=== PATIENT | male | born 1960 | race Caucasian/White ===

== ENCOUNTER 2022-03-07 20:42 | Emergency (ER) | payer OTHER ==
[~2022-03-07] VITALS: Ht 157.5 cm; Wt 69.1 kg
[2022-03-07] MEDS ORDERED: LACTATED RINGER'S 1,000 ML IV ONE (21:15)
[2022-03-07] MEDS ORDERED: ASPirin 325 MG TAB PO ONE (21:15)
[2022-03-07 21:54] LABS: Basophils # (auto) 0.1 10 ^3/uL (0-0.2); Basophils % (auto) 0.8 % (0.0-2.0); Eosinophils # (auto) 0.5 10 ^3/uL (0-0.8); Eosinophils % (auto) 4.8 % (0.0-7.0); Hematocrit 46.2 % (41.0-53.0); Lymphocytes % (auto) 10.2 % (10.0-50.0); Mean Corpuscular Hemoglobin 28.9 pg (28.0-32.0); Mean Corpuscular Hgb Conc. 32.5 g/dL (32.0-36.0); Monocytes # (auto) 0.7 10 ^3/uL (0-1.3); Monocytes % (auto) 7.4 % (0.0-12.0); Neutrophils # (auto) 7.7 10 ^3/uL (1.6-8.6); Neutrophils % (auto) 76.8 % (37.0-80.0); Nucleated Red Blood Cells % 0.1 %; Red Blood Cells 5.19 10^6/uL (4.5-5.90); Red Cell Distribution Width 14.2 % (11.8-14.3)
[2022-03-07 22:08] LABS: INR 0.97 (0.9-1.15); Partial Thromboplastin Time 25.1 sec (24.6-33.4)
[2022-03-07 22:11] LABS: Alanine Aminotransferase 31 U/L (16-61); Albumin 4.1 g/dL (3.4-5.0); Anion Gap 5 (5-15); Aspartate Aminotransferase 25 U/L (15-37); BUN/Creatinine Ratio 19.5; Blood Alcohol < 3.0 mg/dL (0-5); Blood Urea Nitrogen 23 mg/dL (7-18); Calcium 9.2 mg/dL (8.5-10.1); Carbon Dioxide 31 mmol/L (21-32); Chloride 103 mmol/L (98-107); GFR African American 81 mL/min; GFR Non-African American 67 mL/min; Glucose 89 mg/dL (74-106); Magnesium 2.4 mg/dL (1.6-2.6); Sodium 139 mmol/L (136-145)
[2022-03-07 22:14] LABS: Alkaline Phosphatase 105 U/L (45-117); Bilirubin, Total 0.5 mg/dL (0.2-1.0); Total Protein 7.6 g/dL (6.4-8.2)
[2022-03-07 22:52] LABS: Urine Bacteria NONE SEEN /hpf (None Seen); Urine Blood Negative /uL (Negative); Urine WBC <1 /hpf (0 - 3)
[2022-03-07 22:54] LABS: Urine Specific Gravity > 1.050 (1.001-1.035)
[2022-03-07 23:06] LABS: Alcohol, Urine < 3.0 mg/dL (0-10); Amphetamine Screen, Urine NEGATIVE (NEGATIVE); Barbiturate Scree,Urine NEGATIVE (NEGATIVE); Cannabinoid Screen, Urine POSITIVE (NEGATIVE); Cocaine Screen, Urine NEGATIVE (NEGATIVE); Opiate Scree,Urine NEGATIVE (NEGATIVE); Phencyclidine Screen, Urine NEGATIVE (NEGATIVE)
[2022-03-07 23:14] LABS: Benzodiazephine Screen, Urine NEGATIVE (NEGATIVE)
[2022-03-07] MEDS ORDERED: hydrALAZINE HCL 20 MG/ML VL IV ONE (23:45)
[2022-03-08] MEDS ORDERED: LORazepam 2MG/ML-1ML VIAL IV ONE (00:15)
[2022-03-08 03:15] VITALS: BP 127/67
== END 2022-03-08 03:15 | disposition home or self-care (01) ==
LOC: ER 20:45
DX: R47.9 Unspecified speech disturbances (principal); R07.9 Chest pain, unspecified; R41.82 Altered mental status, unspecified; Z86.73 Personal history of transient ischemic attack (TIA), and cerebral infarction without residual deficits
CPT/HCPCS: 36415; 70450; 70496; 71045; 80053; 80307; 80320; 81001; 83735; 84484; 85025; 85610; 85730; 93005; 96361; 96374; 96375; 99285; J0360; J2060

== ENCOUNTER 2023-07-17 00:59 | Emergency (ER) | payer MEDICARE, OTHER ==
[~2023-07-17] VITALS: Ht 165.1 cm; Wt 77.1 kg
[2023-07-17 01:15] VITALS: BP 137/85; PULSE 116; RESP 22; O2SAT 100
[2023-07-17] MEDS: PROPOFOL 100 ML IV ONE (01:25)
[2023-07-17 01:28] LABS: Basophils # (auto) 0.1 10 ^3/uL (0-0.2); Basophils % (auto) 0.3 % (0.0-2.0); Eosinophils # (auto) 0 10 ^3/uL (0-0.8); Eosinophils % (auto) 0.2 % (0.0-7.0)
[2023-07-17 01:29] LABS: Hematocrit 52.9 % (41.0-53.0); Hemoglobin 17.5 g/dL (13.5-17.5); Lymphocytes % (auto) 5.2 % (10.0-50.0); Mean Corpuscular Hemoglobin 29.1 pg (28.0-32.0); Mean Corpuscular Hgb Conc. 33.1 g/dL (32.0-36.0); Monocytes # (auto) 1.9 10 ^3/uL (0-1.3); Monocytes % (auto) 9.5 % (0.0-12.0); Neutrophils # (auto) 16.9 10 ^3/uL (1.6-8.6); Neutrophils % (auto) 84.8 % (37.0-80.0); Nucleated Red Blood Cells % 0.2 %; Red Blood Cells 6.01 10^6/uL (4.5-5.90); White Blood Cell 19.9 10^3/uL (4.4-10.8)
[2023-07-17] MEDS ORDERED: PROPOFOL 100 ML IV SCH (01:30)
[2023-07-17 01:52] LABS: Alanine Aminotransferase 42 U/L (7-40); Albumin 4.9 g/dL (3.2-4.8); Alkaline Phosphatase 122 U/L (46-116); Anion Gap 6 (5-15); Aspartate Aminotransferase 71 U/L (13-40); BUN/Creatinine Ratio 12.6 (10.0-20.0); Bilirubin, Total 0.5 mg/dL (0.2-1.0); Blood Urea Nitrogen 14 mg/dL (9-23); Carbon Dioxide 30 mmol/L (20-30); Chloride 104 mmol/L (98-107); Glucose 137 mg/dL (74-106); Lipase 27 U/L (12-53); Potassium 4.1 mmol/L (3.5-5.1); Sodium 140 mmol/L (136-145); Total Protein 7.9 g/dL (5.7-8.2)
[2023-07-17 01:54] LABS: Urine Bacteria None Seen /hpf (None Seen)
[2023-07-17 02:12] LABS: Amphetamine Screen, Urine Neg (NEGATIVE); Barbiturate Scree,Urine Neg (NEGATIVE); Benzodiazephine Screen, Urine Pos (NEGATIVE); Cannabinoid Screen, Urine Neg (NEGATIVE); Cocaine Screen, Urine Neg (NEGATIVE); Opiate Scree,Urine Neg (NEGATIVE); Phencyclidine Screen, Urine Neg (NEGATIVE)
[2023-07-17 02:18] LABS: Blood Alcohol < 3.0 mg/dL (<10)
[2023-07-17] MEDS: SUCCINYLCHOLINE CHLORIDE 20 MG/ML 10ML VIAL IV ONE (02:19)
[2023-07-17] MEDS: ETOMIDATE (2MG/ML) 20ML VIAL IV ONE (02:19)
[2023-07-17 02:20] LABS: Urine Blood 3+ /uL (Negative); Urine Clarity Clear (Clear); Urine Color Yellow (Yellow); Urine Mucus FEW (None Seen); Urine Protein, UAD 2+ (Negative); Urine Specific Gravity 1.021 (1.001-1.035); Urine Urobilinogen Normal (Negative); Urine WBC 4 /hpf (0 - 3)
[2023-07-17 02:49] LABS: Base Excess 1.7 mmol/L (-2.0-2.0)
[2023-07-17] MEDS: ACETAMINOPHEN 500 MG TAB PO ONE (03:13)
[2023-07-17] MEDS: ACETAMINOPHEN 325 MG TAB PO ONE (03:14)
[2023-07-17] MEDS: ROCURONIUM 10MG/ML 10ML VIAL IV ONE (03:20)
[2023-07-17 03:25] VITALS: BP 138/88; PULSE 112; RESP 16; O2SAT 97
[2023-07-17 03:44] LABS: INR 1.08 (0.9-1.15); Prothrombin Time 11.4 sec (9.3-11.8)
[2023-07-17] MEDS: PROPOFOL 100 ML IV SCH (04:05)
[2023-07-17] MEDS: SODIUM CHLORIDE 0.9% 2,000 ML IV ONE (04:31)
[2023-07-17] MEDS ORDERED: VANCOMYCIN PER PHARMACY 0 MG IV SCH (05:00)
[2023-07-17] MEDS ORDERED: IBUPROFEN 600 MG TAB PO PRN (05:00)
[2023-07-17] MEDS ORDERED: DOCUSATE SOD 100 MG CAP PO PRN (05:00)
[2023-07-17] MEDS ORDERED: ONDANSETRON HCL 4 MG/2 ML VIAL IV PRN (05:00)
[2023-07-17] MEDS: cefTRIAXone 1GM/50ML D5W 50 ML IV ONE (05:00)
[2023-07-17] MEDS: levETIRAcetam 1000 mg/100ml 100 ML IV ONE (05:00)
[2023-07-17 05:44] LABS: Basophils # (auto) 0.1 10 ^3/uL (0-0.2); Basophils % (auto) 0.6 % (0.0-2.0); Eosinophils # (auto) 0.2 10 ^3/uL (0-0.8); Eosinophils % (auto) 1.1 % (0.0-7.0); Hemoglobin 14.3 g/dL (13.5-17.5); Lymphocytes # (auto) 1.1 10 ^3/uL (0.4-5.4); Lymphocytes % (auto) 8.2 % (10.0-50.0); Mean Corpuscular Hemoglobin 28.9 pg (28.0-32.0); Mean Corpuscular Hgb Conc. 33.3 g/dL (32.0-36.0); Mean Corpuscular Volume 86.9 fL (80.0-100.0); Monocytes # (auto) 1.3 10 ^3/uL (0-1.3); Monocytes % (auto) 9.7 % (0.0-12.0); Neutrophils % (auto) 80.4 % (37.0-80.0); Red Blood Cells 4.95 10^6/uL (4.5-5.90); Red Cell Distribution Width 13.9 % (11.8-14.3); White Blood Cell 13.7 10^3/uL (4.4-10.8)
[2023-07-17] MEDS: ACETAMINOPHEN 650 MG RECT SUPP PR ONE (05:49)
[2023-07-17 05:51] VITALS: BP 131/71; PULSE 110; RESP 19; O2SAT 97
[2023-07-17] MEDS: SODIUM CHLOR 0.9% PF (SALINE LOCK) 10ML VIAL/SYR IV SCH (06:00)
[2023-07-17 06:09] LABS: Base Excess -1.3 mmol/L (-2.0-2.0)
[2023-07-17] MEDS ORDERED: MORPHINE SULFATE INJ 2 MG/ml SYRG IV PRN (06:15)
[2023-07-17] MEDS ORDERED: NITROGLYCERIN 0.4 MG SL TAB SL PRN (06:15)
[2023-07-17 06:16] LABS: Alanine Aminotransferase 51 U/L (7-40); Albumin 3.6 g/dL (3.2-4.8); Alkaline Phosphatase 89 U/L (46-116); Anion Gap 4 (5-15); Aspartate Aminotransferase 152 U/L (13-40); BUN/Creatinine Ratio 15.2 (10.0-20.0); Bilirubin, Total 0.8 mg/dL (0.2-1.0); Blood Urea Nitrogen 21 mg/dL (9-23); Calcium 8.1 mg/dL (8.5-10.1); Carbon Dioxide 27 mmol/L (20-30); Chloride 111 mmol/L (98-107); Glucose 112 mg/dL (74-106); Potassium 3.9 mmol/L (3.5-5.1); Sodium 142 mmol/L (136-145); Total Protein 5.5 g/dL (5.7-8.2)
[2023-07-17 06:18] LABS: Lactic Acid w/Reflex 3.2 mmol/L (0.4-2.0)
[2023-07-17 07:31] VITALS: BP 135/55; PULSE 67; RESP 16; O2SAT 99
[2023-07-17] MEDS ORDERED: VANCOMYCIN 1GM/200ML 200 ML IV ONE (08:22)
[2023-07-17] MEDS: VANCOMYCIN 1GM/200ML 200 ML IV ONE (08:22)
[2023-07-17 08:45] VITALS: BP 158/69; PULSE 77; RESP 22; TEMP 100.2; O2SAT 96
[2023-07-17] MEDS ORDERED: cefTRIAXone 1GM/50ML D5W 50 ML IV SCH (09:00)
[2023-07-17] MEDS ORDERED: PROPOFOL 100 ML IV ONE (09:17)
[2023-07-17] MEDS ORDERED: ENOXAPARIN SOD 40 MG/0.4 ML SYRINGE SC SCH (10:00)
[2023-07-17] MEDS ORDERED: FAMOTIDINE (10MG/ML) 2ML VL IV SCH (10:00)
[2023-07-17] MEDS ORDERED: levETIRAcetam 500 mg/100ml 100 ML IV SCH (10:00)
== END 2023-07-17 09:23 | disposition short-term general hospital (02) ==
LOC: ER 00:59 → EDBD 00:59 → TELE 06:16 → UNDOADMIN 06:16 → ER 09:23
DX: I61.4 Nontraumatic intracerebral hemorrhage in cerebellum (principal); I61.5 Nontraumatic intracerebral hemorrhage, intraventricular; J45.909 Unspecified asthma, uncomplicated; Z86.73 Personal history of transient ischemic attack (TIA), and cerebral infarction without residual deficits; F32.A Depression, unspecified
CPT/HCPCS: 31500; 36415; 36600; 70450; 71045; 80053; 80307; 80320; 81001; 82805; 83605; 83690; 83880; 84484; 85025; 85610; 87040; 87070; 87205; 93005; 96365; 96367; 96368; 99291; J0696; J1953; J2704; J3370; 36680; 96375